=== PATIENT | male | born 1945 | race Caucasian/White ===

== ENCOUNTER 2021-03-02 18:35 | Emergency (ER) | payer MEDICARE ==
[~2021-03-02 18:35] MED LIST: AMLODIPINE BESYL5 MG PO; ASPIRIN CHEWABL81 MG PO; BENAZEPRIL-HCT1 EAC2 PO; BICALUTAMIDE50 MG PO; BROMOCRIPTINE2.5 MG PO; CLOPIDOGREL75 MG PO; FUROSEMIDE 20MG20 MG PO; GLIMEPIRIDE4 MG PO; JARDIANCE10 MG PO; LOPRESSOR25 MG PO; POTASSIUM CHLO20 ME2 PO; SIMVASTATIN80 MG PO; TAMIFLU 75MG CA75 MG PO; TRULICITY1.5 MG/0.5 SC; ZETIA10 MG PO
[2021-03-02 19:39] LABS: BASOPHIL 0.4 % (0-2); EOSINOPHIL 1.3 % (0-7); HCT 40.1 % (42.0-52.0); HGB 13.8 g/dl (13.2-18.0); LYMPHOCYTE 19.5 % (15-48); MCH 30.5 pg (25.0-31.0); MCHC 34.4 g/dL (32.0-36.0); MCV 88.5 fL (78.0-100.0); MPV 9.1 fL (6.0-9.5); NEUTROPHIL 70.6 % (41-80); NRBC 0; PLT 150 K/uL (150-400); RBC 4.53 M/uL (4.70-6.00); RDW 12.9 % (11.5-14.0); WBC 8.3 K/uL (4.0-10.5)
[2021-03-02 19:55] LABS: ALBUMIN 3.3 g/dL (3.4-5.0); BILIRUBIN - TOTAL 0.4 mg/dL (0.2-1.0); BUN/CREAT RATIO (CALC) 38.5 RATIO; CREATININE 0.96 mg/dL (0.67-1.17); GLOBULIN (CALCULATION) 2.9 g/dL; TOTAL PROTEIN 6.2 g/dL (6.4-8.2)
[2021-03-02 20:07] LABS: BILIRUBIN NEGATIVE (NEGATIVE); BLOOD 1+ Ery/uL (NEGATIVE); CLARITY CLEAR (CLEAR); COLOR YELLOW (YELLOW); GLUCOSE (U) 3+ mg/dL (NORMAL); LEUKOCYTES NEGATIVE Leu/uL (NEGATIVE); NITRITE NEGATIVE (NEGATIVE); PROTEIN 3+ mg/dL (NEGATIVE); SPECIFIC GRAVITY 1.025 (1.001-1.030)
[2021-03-02 20:18] LABS: SQUAMOUS EPITHELIAL CELLS RARE
== END 2021-03-02 20:51 | disposition home or self-care (01) ==
LOC: FER 18:35
PROVIDERS: Emergency Medicine Emergency Medical Services
DX: I10 Essential (primary) hypertension (principal); I44.7 Left bundle-branch block, unspecified; I25.2 Old myocardial infarction; E11.9 Type 2 diabetes mellitus without complications; Z84.1 Family history of disorders of kidney and ureter
CPT/HCPCS: 36415; 71045; 80053; 81001; 84484; 85025; 93005

== ENCOUNTER 2021-06-09 13:11 | Emergency (ER) | payer MEDICARE ==
[2021-06-09 13:55] LABS: BASOPHIL 0.3 % (0-2); EOSINOPHIL 0.9 % (0-7); HCT 38.9 % (42.0-52.0); LYMPHOCYTE 16.7 % (15-48); MCHC 33.4 g/dL (32.0-36.0); MCV 89.6 fL (78.0-100.0); MONOCYTE 7.3 % (0-12); MPV 9.5 fL (6.0-9.5); NEUTROPHIL 74.5 % (41-80); NRBC 0; PLT 181 K/uL (150-400); RBC 4.34 M/uL (4.70-6.00); RDW 12.8 % (11.5-14.0); WBC 9.1 K/uL (4.0-10.5)
[2021-06-09 14:02] LABS: BILIRUBIN NEGATIVE (NEGATIVE); BLOOD NEGATIVE Ery/uL (NEGATIVE); CLARITY CLEAR (CLEAR); COLOR YELLOW (YELLOW); GLUCOSE (U) 3+ mg/dL (NORMAL); LEUKOCYTES NEGATIVE Leu/uL (NEGATIVE); NITRITE NEGATIVE (NEGATIVE); PROTEIN TRACE (LOW) mg/dL (NEGATIVE); SPECIFIC GRAVITY 1.015 (1.001-1.030); UROBILINOGEN 0.2 mg/dL (0.2-1.0)
[2021-06-09 14:17] LABS: ALBUMIN 3.5 g/dL (3.4-5.0); BILIRUBIN - TOTAL 0.5 mg/dL (0.2-1.0); BUN/CREAT RATIO (CALC) 28.3 RATIO; CREATININE 1.13 mg/dL (0.67-1.17); GLOBULIN (CALCULATION) 2.9 g/dL; POTASSIUM 3.7 mmol/L (3.5-5.1); TOTAL PROTEIN 6.4 g/dL (6.4-8.2)
[2021-06-09 14:32] LABS: URINARY RBC RARE; URINARY WBC RARE
[2021-06-09 16:25] LABS: INR 0.97 (0.9-1.2); PROTHROMBIN TIME 12.3 SECONDS (11.8-13.4); PTT 28.7 SECONDS (24.4-34.7)
== END 2021-06-10 01:30 | disposition home or self-care (01) ==
LOC: FER 13:11
PROVIDERS: Emergency Medicine
DX: I63.9 Cerebral infarction, unspecified (principal); I44.7 Left bundle-branch block, unspecified; E11.9 Type 2 diabetes mellitus without complications; I10 Essential (primary) hypertension; Z95.1 Presence of aortocoronary bypass graft; Z79.899 Other long term (current) drug therapy; Z79.02 Long term (current) use of antithrombotics/antiplatelets
CPT/HCPCS: 36415; 70450; 70551; 71045; 80053; 81001; 82553; 85025; 85610; 85730; 93005; J7030

== ENCOUNTER 2021-08-10 08:46 | Emergency (ER) | payer MEDICARE ==
[2021-08-10] MEDS ORDERED: NORCO 5-325 TA1 EACH PO (10:03)
[2021-08-10] MEDS ORDERED: NAPROXEN500 MG PO (10:03)
== END 2021-08-10 10:22 | disposition home or self-care (01) ==
LOC: FER 08:46
DX: S22.42XA Multiple fractures of ribs, left side, initial encounter for closed fracture (principal); S10.93XA Contusion of unspecified part of neck, initial encounter; I10 Essential (primary) hypertension; E10.9 Type 1 diabetes mellitus without complications; Z79.4 Long term (current) use of insulin; W17.89XA Other fall from one level to another, initial encounter
CPT/HCPCS: 71101

== ENCOUNTER 2022-03-04 15:31 | Emergency (ER) | payer MEDICARE ==
[~2022-03-04 15:31] MED LIST changes: +NAPROXEN500 MG PO; +NORCO 5-325 TA1 EACH PO
== END 2022-03-04 20:30 | disposition home or self-care (01) ==
LOC: FER 15:31
DX: S51.812A Laceration without foreign body of left forearm, initial encounter (principal); S81.011A Laceration without foreign body, right knee, initial encounter; M25.512 Pain in left shoulder; G89.29 Other chronic pain; W01.0XXA Fall on same level from slipping, tripping and stumbling without subsequent striking against object, initial encounter; Y92.009 Unspecified place in unspecified non-institutional (private) residence as the place of occurrence of the external cause
CPT/HCPCS: 73030; 73090; 73560